=== PATIENT | male | born 1965 | race Two or more races ===

== ENCOUNTER 2025-05-07 18:41 | Emergency (ER) | payer OTHER ==
[~2025-05-07] VITALS: Ht 180.3 cm; Wt 65.8 kg
[2025-05-07] MEDS ORDERED: AMLODIPINE-BEN1 EAC2 PO (19:07)
[2025-05-07] MEDS ORDERED: ORPHENADRINE CITRATE 30 MG/ML AMPUL IV ONE (19:30)
[2025-05-07] MEDS ORDERED: KETOROLAC TROMETHAMINE 30 MG VIAL IV ONE (19:30)
[2025-05-07] MEDS ORDERED: FAMOTIDINE/PF 20 MG/2 ML VIAL IV ONE (19:30)
[2025-05-07] MEDS ORDERED: ORPHENADRINE CITRATE 30 MG/ML AMPUL ONE (20:26)
[2025-05-07] MEDS ORDERED: KETOROLAC TROMETHAMINE 30 MG VIAL ONE (20:26)
[2025-05-07] MEDS ORDERED: FAMOTIDINE/PF 20 MG/2 ML VIAL ONE (20:26)
[2025-05-07 20:58] LABS: BASO % 0.4 % (0.1-1.2); EOS # 0.02 (0.04-0.54); EOS % 0.3 % (0.7-7.0); LYMPH # 0.88 (1.18-3.74); LYMPH % 11.8 % (19.3-53.1); MEAN PLATELET VOLUME 9.40 fl (9.4-12.4); MONO # 0.56 (0.24-0.82); MONO % 7.5 % (4.7-12.5); NEUT # 5.93 (1.56-6.13); NEUT % 79.7 % (34.0-71.1); RED CELL DISTRIBUTION WIDTH 13.2 % (11.6-14.4)
[2025-05-07 21:24] LABS: BUN CREA RATIO 15 (7.0-25.0); CREATININE SERUM 1.14 mg/dL (0.70-1.30); GFR 66.21; GLUCOSE FASTING 97 mg/dL (65-100); OSMOLALITY SERUM 279 MOSM/KG (275-295)
[2025-05-07 21:25] LABS: CKMB < 1.0 NG/ML (0.5-3.6)
[2025-05-08] MEDS ORDERED: KETO10TA2 PO (00:12)
[2025-05-08] MEDS ORDERED: NORFLEX100MG PO (00:12)
== END 2025-05-08 02:07 | disposition home or self-care (01) ==
LOC: ER 18:41
PROVIDERS: General Practice
DX: M94.0 Chondrocostal junction syndrome [Tietze] (principal); R07.9 Chest pain, unspecified; Z88.0 Allergy status to penicillin